=== PATIENT | male | born 1955 | race Caucasian/White ===

== ENCOUNTER 2016-04-20 15:20 | Emergency (ER) | payer MEDICARE, OTHER, MEDICAID ==
[~2016-04-20 15:20] MED LIST: ADVAIR 5001 DISK W/D IH; ALOE VESTA56 G1 TOP; AMBIEN PAK10 MG PO; AMBIEN10 M1 PO; AMITIZA24 MC1 PO; AMITIZA24 MCG PO; APAP325 M1 PO; ATIVAN0.5 M1 PO; AUGMENTIN 500-1 EAC2 PO; BACTROBAN15 GM TP; CARAFATE1 G/10 ML PO; CIPRO500 M2 PO; CIPRO500 MG/51 PO; CLEAR LAX; COZAAR100 MG PO; CULTURELLE1 EAC1 PO; DITROPAN XL5 M3 PO; DITROPAN5 M1 PO; DOCUSATE SODIU250 M1 PO; ESCITALOPRAM OX10 M1 PO; FLAGYL500 M1 PO; HYDROXYZINE HCL25 M1 PO; IPRAT-ALBUT 0.5-3 ML IH; K-DUR20 ME1 PO; KLOR-CON M20 MEQ/TAB PO; LASIX40 M1 PO; LASIX40 MG PO; LEXAPRO20 M2 PO; MESTINON60 M1 PO; MIRALAX17 G1 PO; MIRALAX17 G2 PO; MULTI-VITAMIN1 EAC1 PO; MULTI-VITAMIN1 EAC3 PO; MYLICON PO; NASAL MIST126 ML; NORCO 5-325 TA1 EACH PO; NORCO 7.5-3251 EACH PO; NYSTATIN15 G1 TOP; NYSTATIN15 G3 TOP; OXYBUTYNIN CHLO15 M1 PO; OXYBUTYNIN CHLOR5 M2 PO; PLAVIX75 M1 PO; PROTONIX20 M2 PO; PROTONIX40 M1 PO; RISPERDAL2 M1 PO; RISPERDAL2 M2 PO; SENNA PLUS TAB1 EAC1 PO; SENNOSIDES-DOC1 EACH PO; SILVADENE20 G1 TOP; SILVADENE20 GM TOP; SIMETHICONE80 M3 PO; SULFAMYLON SOL250 M1 TOP; SYNTHROID175 MC1 PO; SYNTHROID175 MCG PO; TRAMADOL HCL50 M2 PO; TYLENOL PM PO; TYLENOL325 M2 PO; VIBRAMYCIN100 M1 PO; [UNRECOGNIZED DRUG - OTHER] PO; [UNRECOGNIZED DRUG - OTHER] PO
== END 2016-04-20 19:36 ==
LOC: EDMED 15:20
DX: K59.00 Constipation, unspecified (principal)

== ENCOUNTER 2016-04-29 11:54 | Emergency (ER) | payer MEDICARE, OTHER, MEDICAID ==
[2016-04-29] MEDS ORDERED: ULTRAM50 M1 PO (12:18)
[2016-04-29] MEDS ORDERED: AMITRIPTYLINE H25 M1 PO (12:19)
[2016-04-29] MEDS ORDERED: PLAVIX75 M1 PO (12:19)
[2016-04-29] MEDS ORDERED: FEROSUL325 M1 PO (12:19)
[2016-04-29] MEDS ORDERED: POTASSIUM CHLO20 ME3 PO (12:20)
[2016-04-29] MEDS ORDERED: DITROPAN XL10 M3 PO (12:20)
[2016-04-29] MEDS ORDERED: PROTONIX40 M2 PO (12:20)
[2016-04-29] MEDS ORDERED: LEXAPRO20 M2 PO (12:21)
[2016-04-29] MEDS ORDERED: RESTORIL15 M1 PO (12:21)
[2016-04-29] MEDS ORDERED: PYRIDOSTIGMINE60 M2 PO (12:21)
[2016-04-29] MEDS ORDERED: LASIX40 M1 PO (12:21)
[2016-04-29] MEDS ORDERED: RISPERDAL4 M1 PO (12:21)
[2016-04-29] MEDS ORDERED: SYNTHROID0.2 MG/TAB PO (12:22)
[2016-04-29] MEDS ORDERED: TRAZODONE HCL50 M1 PO (12:22)
[2016-04-29 13:29] LABS: BASO % 0.6 % (0-2); EOS % 2.6 % (0-7); EOSINOPHIL ABSOLUTE COUNT 0.2 tho/cmm (0.0-0.7); HCT-HEMATOCRIT 39.3 % (36.0-53.5); HGB-HEMOGLOBIN 13.3 gm/dl (13.5-17.0); LYMPH % 21.8 % (20-45); LYMPH ABSOLUTE COUNT 1.4 tho/cmm (0.8-4.5); MCH (MEAN CORPUSCULAR HGB) 29.4 pg (28.0-32.0); MCHC MEAN CORPUSCULAR HGB CONC 33.8 % (32.0-36.0); MCV (MEAN CELL VOLUME) 86.9 fl (82.0-96.0); MEAN PLATELET VOLUME 9.4 cmc (9.4-12.4); MONO % 8.2 % (0-12); MONOCYTE ABSOLUTE COUNT 0.5 tho/cmm (0.0-1.2); NEUTROPHIL ABSOLUTE COUNT 4.3 tho/cmm (1.6-8.0); NEUTROPHIL-AUTOMATED 4.3 tho/cmm (1.6-8.0); NEUTROPHILS % 66.8 % (40-80); PLATELET COUNT 234 tho/cmm (150-450); RED BLOOD COUNT 4.52 mil/cmm (4.40-5.70); RED CELL DISTRIBUTION WIDTH 13.4 % (12.4-16.4); WHITE BLOOD COUNT 6.5 tho/cmm (4.0-10.0)
[2016-04-29 13:36] LABS: URINE BILIRUBIN NEGATIVE (NEG); URINE BLOOD SMALL (NEG); URINE GLUCOSE (UA) NEGATIVE (NEG); URINE KETONE NEGATIVE (NEG); URINE LEUKOCYTE ESTERASE POSITIVE (NEG); URINE NITRITE NEGATIVE (NEG); URINE PROTEIN MODERATE (NEG)
[2016-04-29 13:40] LABS: URINE APPEARANCE CLEAR; URINE COLOR PALE YELLOW
[2016-04-29 13:42] LABS: URINE BACTERIA 2+; URINE EPITHELIAL CELLS 0 /[HPF] (0-10); URINE RBC RARE /[HPF] (0-5)
[2016-04-29 13:43] LABS: ANION GAP 9 mmol/L (0-20); BLOOD UREA NITROGEN 14 mg/dl (6-24); CALCIUM 8.8 mg/dl (8.5-10.5); CARBON DIOXIDE-VENOUS 33 mmol/L (22-32); CHLORIDE 101 mmol/l (96-110); GLUCOSE 90 mg/dL (70-110); POTASSIUM 3.4 mmol/L (3.7-5.1); SODIUM 140 mmol/L (135-145); eGFR VALUE FOR BLACK 53 mL/Min
== END 2016-04-29 17:34 ==
LOC: EDMED 11:54
PROVIDERS: Emergency Medicine
DX: K59.00 Constipation, unspecified (principal); E87.6 Hypokalemia; I10 Essential (primary) hypertension; J44.9 Chronic obstructive pulmonary disease, unspecified

== ENCOUNTER 2016-05-14 12:21 | Emergency (ER) | payer MEDICARE, OTHER, MEDICAID ==
[~2016-05-14 12:21] MED LIST changes: +AMITRIPTYLINE H25 M1 PO; +DITROPAN XL10 M3 PO; +FEROSUL325 M1 PO; +POTASSIUM CHLO20 ME3 PO; +PROTONIX40 M2 PO; +PYRIDOSTIGMINE60 M2 PO; +RESTORIL15 M1 PO; +RISPERDAL4 M1 PO; +SYNTHROID0.2 MG/TAB PO; +TRAZODONE HCL50 M1 PO; +ULTRAM50 M1 PO
[2016-05-14] MEDS ORDERED: AMITIZA24 MC1 PO (14:30)
[2016-05-14] MEDS ORDERED: MIRALAX17 G2 PO (14:32)
[2016-05-14] MEDS ORDERED: COLACE100 M1 PO (14:33)
== END 2016-05-14 16:31 ==
LOC: EDMED 12:21
DX: R14.1 Gas pain (principal); K59.00 Constipation, unspecified